=== PATIENT | female | born 2000 | race Caucasian/White ===

== ENCOUNTER 2019-06-01 00:05 | Emergency (ER) | payer SELFPAY ==
[~2019-06-01] VITALS: Ht 154.9 cm; Wt 62.0 kg
[2019-06-01] MEDS ORDERED: PREDNISONE 20MG TABLET PO ONE (02:00)
[2019-06-01 02:38] VITALS: BP 111/64
== END 2019-06-01 02:39 | disposition home or self-care (01) ==
LOC: ER 00:05
DX: R21 Rash and other nonspecific skin eruption (principal); L29.8 Other pruritus; J45.909 Unspecified asthma, uncomplicated
CPT/HCPCS: 99283; J7512